=== PATIENT | male | born 1955 | race Caucasian/White ===

== ENCOUNTER 2019-03-29 06:25 | Outpatient (CLI) | payer BC, MEDICARE ==
[2019-03-29 10:17] LABS: Bacteria/HPF None Seen HPF (None Seen); Bilirubin Negative (Negative); Blood, Urine Trace (Negative); Clarity Clear (Clear); Glucose, Urine (Dipstick) Normal (Negative); Leukocyte Negative Leu/uL (Negative); Nitrite Negative (Negative); Protein, Urine (Dipstick) Negative (Neg-Trace); RBC/HPF 0-3 HPF (0-3); Squamous Epithelial None Seen HPF (0-3); Urobilinogen Normal mg/dL (Less than 2); WBC/HPF None Seen HPF (0-3)
[2019-03-29 10:31] LABS: INR-International Normal Ratio 0.9; Prothrombin Time 12.6 SEC (12.0-14.7)
== END 2019-03-29 06:26 | disposition home or self-care (01) ==
LOC: LABBT 06:25
PROVIDERS: ATTEND Orthopaedic Surgery
DX: Z01.812 Encounter for preprocedural laboratory examination (principal); M16.12 Unilateral primary osteoarthritis, left hip
CPT/HCPCS: 81001; 85610; 87081

== ENCOUNTER 2019-03-29 08:30 | Inpatient (IN) | payer BC, MEDICARE ==
[2019-03-29 08:57] VITALS: BMI 29.5
[2019-04-10] MEDS ORDERED: Tranexamic Acid 1,000 MG/10 ML VIAL ONE (05:56)
[2019-04-10] MEDS ORDERED: Sodium Chloride 0.9% 100 ML ONE (05:56)
[2019-04-10] MEDS ORDERED: Vancomycin 1.5 GRAM/300 ML BAG 1.5 GM in Premix Bag 1 BAG IVPB SCH (06:00)
[2019-04-10] MEDS ORDERED: Lidocaine 1% (PF) 30 ML VIAL ONE (06:25)
[2019-04-10] MEDS ORDERED: Fentanyl 100 MCG/2 ML VIAL ONE ×2 (06:25→07:21)
[2019-04-10] MEDS ORDERED: Midazolam HCl 2 mg/2 ml Vial ONE (06:25)
[2019-04-10] MEDS ORDERED: Zolpidem Tartrate 5 MG TAB PO PRN ×2 (06:45→06:48)
[2019-04-10] MEDS ORDERED: Naloxone HCl 0.4 mg/ml Vial IV PRN (06:45)
[2019-04-10] MEDS ORDERED: diphenhydrAMINE 25 MG CAP PO PRN ×2 (06:45→06:48)
[2019-04-10] MEDS ORDERED: Promethazine HCl 25 MG SUPP PR PRN (06:45)
[2019-04-10] MEDS ORDERED: diphenhydrAMINE 50 MG/ML VIAL IVP PRN (06:45)
[2019-04-10] MEDS ORDERED: Ondansetron PF 4 MG/2 ML Vial IVP PRN ×2 (06:45→06:48)
[2019-04-10] MEDS ORDERED: Naloxone HCl 0.4 mg/ml Vial IVP PRN (06:45)
[2019-04-10] MEDS ORDERED: diphenhydrAMINE 50 MG/ML VIAL IM PRN (06:45)
[2019-04-10] MEDS ORDERED: traMADol HCl 50 MG TAB PO PRN ×2 (06:45)
[2019-04-10] MEDS ORDERED: Hydrocerin (Eucerin) Cream 120 gm Jar TOP PRN (06:45)
[2019-04-10] MEDS ORDERED: Promethazine HCl 25 MG/ML VIAL IM PRN ×3 (06:45→08:34)
[2019-04-10] MEDS ORDERED: Acetaminophen 325 MG TAB PO PRN (06:48)
[2019-04-10] MEDS ORDERED: HYDROcodone/Acetaminophen 10/325 mg Tablet PO PRN ×2 (06:48)
[2019-04-10] MEDS ORDERED: Fentanyl 100 MCG/2 ML VIAL SLOW IVP PRN ×2 (06:48)
[2019-04-10] MEDS ORDERED: Ropivacaine 0.2% HCl/PF 20 ML ONE (07:22)
[2019-04-10] MEDS ORDERED: Promethazine HCl 25 MG/ML VIAL SLOW IVP PRN (08:34)
[2019-04-10] MEDS ORDERED: Ondansetron HCl/PF 4 MG/2 ML Vial IVP PRN (08:34)
[2019-04-10] MEDS ORDERED: Non-Formulary Item 1 EACH (Multivitamin [Multi-Vitamin Daily] 1 TABLET) PO SCH (09:00)
[2019-04-10] MEDS ORDERED: Aspirin 81 mg Enteric Coated Tablet PO SCH (09:00)
--- NOTE | 2019-04-10 09:56 | RAD ---
XR Hip Lt 2-3 View HISTORY: Postop total hip replacement FINDINGS: There are recent postoperative changes of total left hip arthroplasty in good position and alignment.
[2019-04-10] MEDS ORDERED: PROPOFOL 200 MG/20 ML VIAL ONE (10:18)
[2019-04-10] MEDS ORDERED: Lidocaine 1.5% w/Epi 1:200K 30 ML VIAL (Epid Use) ONE (10:18)
[2019-04-10] MEDS ORDERED: Lidocaine 1% PF 5 ML VIAL ONE (10:18)
[2019-04-10] MEDS ORDERED: Glycopyrrolate 0.2 MG/ML 5 ML SYRINGE ONE (10:18)
[2019-04-10] MEDS ORDERED: Rocuronium Bromide 10 MG/ML (10ML VIAL) ONE (10:18)
[2019-04-10] MEDS ORDERED: Ondansetron PF 4 MG/2 ML Vial ONE (10:18)
[2019-04-10] MEDS: Sodium Chloride 0.9% 1,000 ML IV SCH ×2 (11:35→15:08)
[2019-04-10] MEDS: Aspirin 81 mg Enteric Coated Tablet PO SCH ×2 (11:55→20:30)
[2019-04-10] MEDS: Ubidecarenone 50 MG CAP PO SCH (11:55)
[2019-04-10] MEDS: Ketorolac Tromethamine 30 MG/ML VIAL IVP SCH ×3 (12:19→23:53)
[2019-04-10] MEDS: CEFAZOLIN 2 GM in Premix Bag 1 BAG IVPB SCH ×2 (15:01→21:24)
--- NOTE | 2019-04-10 17:18 | OP ---
DATE OF PROCEDURE: 04/10/2019 PROCEDURE PERFORMED: Left total hip arthroplasty using a Crestline Accolade II, #6 stem with 54 mm cup and -2.5, 36 ceramic head, 10 degree offset, 36 mm X3 liner. DOCKMASTER: Shamir Reyna PA-C BLOOD LOSS: Less than 200. SPECIMEN: None. DRAIN: None. COMPLICATION: None. PROCEDURE IN DETAIL: After informed consent was obtained in the preoperative holding area, the patient was taken to the operative suite where general anesthesia was induced. The patient was then positioned in the lateral decubitus position. The hip was then prepped and draped in usual sterile fashion. The patient received preoperative antibiotics. Prior to incision, time-out was called and all members of the surgical team agreed upon site, surgeon, and patient. After this, a longitudinal incision was made directly over the trochanter, noted by palpation extending 2 fingerbreadths above and below the trochanter. The deeper subcutaneous layer was undermined with Bovie electrocautery. The iliotibial band was encountered and incised sharply and the plane below this was developed bluntly. A Charnley retractor was placed to hold this opened. The lateral aspect of the trochanter and the abductor muscles were encountered and then reflected anteriorly off the trochanter using Bovie electrocautery. Once this was completed, the anterior capsule was then encountered and identified and copious capsulotomy was carried out, exposing the femoral neck and head. Dislocation maneuver was then performed and an in situ provisional neck cut was then made using the oscillating saw. Attention was then turned to acetabular preparation and sequential reaming was carried out up to the appropriate diameter. A trial was then malleted into place with good firm resistance and no pullout. The permanent acetabular shell was then malleted squarely into place, as was the appropriate liner. Once completed, the wound was copiously irrigated and attention was then turned to femoral preparation. Flexion and external rotation were performed of the exposed thigh and femoral elevators were then placed at the proximal aspect of the wound. Canal finder was used to establish the length of the canal and sequential reaming was carried out, followed by broaching. Once the appropriate stability was established with the trial broaches with flexion, extension and rotational stability, we did trial with neutral and 2 mm offset incremental necks. Once the appropriate size was decided upon, with good stability noted with flexion, extension, internal and external rotation and shuck being negative, we removed the femoral trial broach and malleted into place the permanent prosthesis with good firm fit, which was also stable to rotation. Again, the hip felt very stable to flexion, extension, internal and external rotation. Leg lengths appeared near anatomic clinically and we were quite happy with prosthesis placement. Copious irrigation was then carried out through the entirety of the wound. Primary closure of the abductors was accomplished with interrupted #2 Vicryl [id number] stitches and the IT band was then closed with interrupted #2 Vicryl, oversewn with a #2 running barbed Quill stitch. Subcutaneous fascia was closed with running barbed Quill stitch and a subcuticular Monocryl barbed Quill stitch was used for skin closure and augmented with skin cement. A sterile dressing was applied. The procedure was terminated without any complication. All counts were correct. The patient was awakened in the operative suite and taken to the recovery room in stable condition. Job ID: [id number]
[2019-04-10] MEDS: Atorvastatin Calcium 20 MG TAB PO SCH (20:30)
[2019-04-10] MEDS: HYDROcodone/Acetaminophen 5/325 mg Tablet PO PRN (20:30)
[2019-04-10] MEDS: fentaNYL Citrate/PF 500 MCG, Bupivacaine 10 ML in Sodium Chloride 0.9% 80 ML EPIDURAL SCH (22:42)
[2019-04-11] MEDS: Sodium Chloride 0.9% 1,000 ML IV SCH ×3 (04:49→20:19)
[2019-04-11 05:04] LABS: Hemoglobin 12.8 g/dL (14.0-18.0); Mean Corpuscular HGB CONC 33.8 g/dL (32.0-36.0); Mean Corpuscular Hemoglobin 31.3 pg (27.0-31.0); Mean Corpuscular Volume 92.4 fL (78.0-98.0); Mean Platelet Volume 6.7 fL (7.4-10.4); Platelet Count 189 thou/uL (130-400); RBC Distribution Width 12.6 % (11.5-14.5); Red Blood Cell (RBC) Count 4.09 mill/uL (4.70-6.10); White Blood Cell (WBC) Count 10.8 thou/uL (4.8-10.8)
[2019-04-11] MEDS: Ketorolac Tromethamine 30 MG/ML VIAL IVP SCH ×3 (05:13→18:28)
[2019-04-11] MEDS: Aspirin 81 mg Enteric Coated Tablet PO SCH ×2 (08:14→20:14)
[2019-04-11] MEDS: Ferrous Gluconate 324 MG TAB PO SCH ×2 (08:14→20:14)
[2019-04-11] MEDS: Ubidecarenone 50 MG CAP PO SCH (08:14)
[2019-04-11] MEDS: Multivitamin W/ Minerals 1 TAB PO SCH (08:14)
[2019-04-11] MEDS: Senokot S 8.6-50 MG TAB PO SCH ×2 (08:14→20:16)
[2019-04-11] MEDS ORDERED: FLU VACC TS2019-20(65YR UP)/PF 180 MCG/0.5 ML SYRINGE IM ONE (09:00)
[2019-04-11] MEDS: HYDROcodone/Acetaminophen 5/325 mg Tablet PO PRN ×2 (09:29→15:24)
[2019-04-11] MEDS ORDERED: Calcium Carbonate 500 MG ChewTAB PO PRN (11:18)
[2019-04-11] MEDS ORDERED: Prevnar 13-Val Conj/PF 0.5 ML SYRINGE IM ONE (12:30)
[2019-04-11] MEDS: fentaNYL Citrate/PF 500 MCG, Bupivacaine 10 ML in Sodium Chloride 0.9% 80 ML EPIDURAL SCH (14:44)
[2019-04-11] MEDS ORDERED: Polyethylene Glycol 3350 17 GM Packet PO PRN (19:55)
[2019-04-11] MEDS: Atorvastatin Calcium 20 MG TAB PO SCH (20:16)
[2019-04-12] MEDS: Ketorolac Tromethamine 30 MG/ML VIAL IVP SCH ×2 (00:19→06:27)
[2019-04-12 05:00] LABS: Hemoglobin 12.4 g/dL (14.0-18.0); Mean Corpuscular HGB CONC 33.4 g/dL (32.0-36.0); Mean Corpuscular Hemoglobin 30.8 pg (27.0-31.0); Platelet Count 175 thou/uL (130-400); RBC Distribution Width 12.5 % (11.5-14.5); Red Blood Cell (RBC) Count 4.02 mill/uL (4.70-6.10); White Blood Cell (WBC) Count 11.4 thou/uL (4.8-10.8)
[2019-04-12] MEDS: Ferrous Gluconate 324 MG TAB PO SCH (08:14)
[2019-04-12] MEDS: Aspirin 81 mg Enteric Coated Tablet PO SCH (08:15)
[2019-04-12] MEDS: Multivitamin W/ Minerals 1 TAB PO SCH (08:15)
[2019-04-12] MEDS: Ubidecarenone 50 MG CAP PO SCH (08:15)
[2019-04-12] MEDS: Senokot S 8.6-50 MG TAB PO SCH (08:15)
[2019-04-12] MEDS: Sodium Chloride 0.9% 1,000 ML IV SCH (09:42)
[2019-04-12] MEDS: HYDROcodone/Acetaminophen 5/325 mg Tablet PO PRN (09:49)
[2019-04-12] MEDS ORDERED: HYDROcodone/Acetaminophen 10/325 mg Tablet PO PRN ×2 (10:10→10:11)
[2019-04-12 11:59] VITALS: BP 114/68; TEMP 98.1
== END 2019-04-12 13:55 | disposition home or self-care (01) | DRG 470 ==
LOC: SJJU 04-10 05:31
PROVIDERS: ADMIT Orthopaedic Surgery; ATTEND Orthopaedic Surgery
PROC: 0SRB04Z Replacement of Left Hip Joint with Ceramic on Polyethylene Synthetic Substitute, Open Approach (ICD-10-PCS; principal; 2019-04-10)
DX: M16.12 Unilateral primary osteoarthritis, left hip (principal); I10 Essential (primary) hypertension; E78.5 Hyperlipidemia, unspecified; Z79.899 Other long term (current) drug therapy
CPT/HCPCS: 36415; 85027; J0690; J1885; J2001; J2250; J2405; J2704; J2795; J3010; J3490

== ENCOUNTER 2019-10-22 08:22 | Outpatient (CLI) | payer BC, OTHER ==
[2019-10-22 16:31] LABS: #Basophils 0.1 thou/uL (0.0-0.2); #Eosinphils 0.1 thou/uL (0.0-0.7); #Lymphocytes 1.3 thou/uL (1.20-3.40); #Monocytes 0.5 thou/uL (0.11-0.59); #Neutrophils 5.2 thou/uL (1.40-6.50); %Eosinophils 1.2 % (0.0-10.0); %Lymphocytes 18.3 % (21.0-51.0); %Monocytes 6.9 % (0.0-10.0); %Neutrophils 72.7 % (42.0-75.0); Hemoglobin 15.3 g/dL (14.0-18.0); Mean Corpuscular HGB CONC 32.4 g/dL (32.0-36.0); Mean Corpuscular Hemoglobin 29.6 pg (27.0-31.0); Mean Corpuscular Volume 91.5 fL (78.0-98.0); Mean Platelet Volume 7.5 fL (7.4-10.4); Platelet Count 202 thou/uL (130-400); RBC Distribution Width 12.5 % (11.5-14.5); Red Blood Cell (RBC) Count 5.16 mill/uL (4.70-6.10); White Blood Cell (WBC) Count 7.2 thou/uL (4.8-10.8)
[2019-10-22 16:51] LABS: Anion Gap 13 mmol/L (10-20); BUN (Urea Nitrogen) 14 mg/dL (8.4-25.7); Calc. Creatinine Clearance 0 mL/min (70-130); Calcium 9.8 mg/dL (7.8-10.44); Carbon Dioxide 30 mmol/L (23-31); Chloride 102 mmol/L (98-107); Estimated GFR-MDRD 78; Glucose 133 mg/dL (80-115); Potassium 3.8 mmol/L (3.5-5.1); Sodium 141 mmol/L (136-145)
[2019-10-23 12:19] LABS: SARS-CoV-2 MS2 Positive; SARS-CoV-2 N Gene Negative; SARS-CoV-2 S Gene Negative; SARS-CoV-2 orf1ab Negative
--- NOTE | 2019-10-24 18:04 | EKG ---
Test Reason : PREOP Blood Pressure : / mmHG Vent. Rate : 071 BPM Atrial Rate : 071 BPM P-R Int : 176 ms QRS Dur : 096 ms QT Int : 376 ms P-R-T Axes : 067 057 053 degrees QTc Int : 408 ms Poor data quality, interpretation may be adversely affected Normal sinus rhythm with sinus arrhythmia Normal ECG When compared with ECG of 02-APR-2014 09:10, No significant change was found Confirmed by MARTIN HANNON (2) on 10/24/2019 6:03:54 PM Referred By: VALENTINA Confirmed By:MARTIN HANNON
== END 2019-10-22 08:23 | disposition home or self-care (01) ==
LOC: LABBT 08:22
PROVIDERS: ATTEND Surgery
DX: Z01.818 Encounter for other preprocedural examination (principal); Z11.59 Encounter for screening for other viral diseases; K40.20 Bilateral inguinal hernia, without obstruction or gangrene, not specified as recurrent
CPT/HCPCS: 80048; 85025; 87635; 93005; 93010; U0003

== ENCOUNTER 2019-10-25 06:08 | Day surgery (SDC) | payer BC ==
[2019-10-19 10:47] VITALS: BMI 29.0
[2019-10-25] MEDS ORDERED: Lidocaine 1% w/Epinephrine 1:100K 20 ML VIAL ONE (06:41)
[2019-10-25] MEDS ORDERED: Bupivacaine 0.25% HCL 30 ML VIAL ONE (06:41)
[2019-10-25] MEDS ORDERED: Fentanyl 250 MCG/5 ML VIAL ONE (06:57)
[2019-10-25] MEDS ORDERED: SUGAMMADEX SODIUM 200 MG/2 ML VIAL ONE (06:57)
--- NOTE | 2019-10-25 09:14 | OP ---
DATE OF PROCEDURE: 10/25/2019 PREOPERATIVE DIAGNOSIS: Bilateral inguinal hernia. POSTOPERATIVE DIAGNOSIS: Bilateral inguinal hernia. PROCEDURE PERFORMED: Laparoscopic da Beth bilateral inguinal hernia repair with mesh, 3DMax large. ANESTHESIA: General. ESTIMATED BLOOD LOSS: Minimal. COMPLICATIONS: None. SPECIMENS: None. DESCRIPTION OF PROCEDURE: The patient was taken to the operating room and laid supine on the operating room table. After general anesthetic was obtained, a Cardona was placed. The abdomen was shaved, prepped, and draped in a sterile fashion. A curved incision was made above the umbilicus. Cautery was used to dissect down to and score the fascia. Abdominal cavity was entered bluntly using a Petrona clamp. An 11-mm balloon trocar was placed and inflated. High-flow pneumoperitoneum was obtained. Left and right abdominal 8-mm robot trocars were placed. All ports were docked to the robot. The peritoneum was opened in the bilateral groin and preperitoneal space bluntly dissected to pubic tubercle medially and to anterior superior iliac crest laterally. Shelving edge of inguinal ligament fully exposed. On the right, the direct hernia was dissected back high up on to the peritoneum and the pubic tubercle exposed. On the left, there was no direct defect. A small indirect defect was dissected out of the other cord structures high on to the peritoneum. Bilateral 3DMax large mesh was brought into the abdomen and then unlabeled medial aspects were placed over pubic tubercles medially. The unlabeled medial aspect was sewn to the pubic tubercle medially. The mesh was sewn to the posterior fascia laterally using Vicryl suture. The mesh was laid out to cover the femoral direct and indirect areas. Three of Stratafix was used to close the peritoneum. All needles were removed from the abdomen and accounted for. All port sites were infiltrated using local anesthetic. All ports were removed under camera visualization. Pneumoperitoneum was let down. PDS was used to close the fascial defect above the umbilicus. All incisions were irrigated and closing using 4-0 Monocryl and Dermabond. The patient was sent to Recovery in stable condition. All instrument counts, needle counts, and lap counts were correct. Job ID: [id number]
[2019-10-25] MEDS ORDERED: Fentanyl 100 MCG/2 ML VIAL ONE ×3 (09:23→10:44)
[2019-10-25] MEDS ORDERED: Glycopyrrolate 0.2 MG/ML 5 ML SYRINGE ONE (11:38)
[2019-10-25] MEDS ORDERED: Lidocaine 1% PF 5 ML VIAL ONE (11:38)
[2019-10-25] MEDS ORDERED: PROPOFOL 200 MG/20 ML VIAL ONE (11:38)
[2019-10-25] MEDS ORDERED: Ondansetron PF 4 MG/2 ML Vial ONE (11:38)
[2019-10-25] MEDS ORDERED: Dexamethasone 20 MG/5 ML VIAL ONE (11:38)
[2019-10-25] MEDS ORDERED: Rocuronium Bromide 10 MG/ML (10ML VIAL) ONE (11:38)
[2019-10-25] MEDS ORDERED: HYDROcodone/Acetaminophen 5/325 mg Tablet ONE (12:51)
== END 2019-10-25 16:45 | disposition home or self-care (01) ==
LOC: SDC 06:08
PROVIDERS: ATTEND Surgery
PROC: 0YUA4JZ Supplement Bilateral Inguinal Region with Synthetic Substitute, Percutaneous Endoscopic Approach (ICD-10-PCS; principal; 2019-10-25)
DX: K40.20 Bilateral inguinal hernia, without obstruction or gangrene, not specified as recurrent (principal); I10 Essential (primary) hypertension; K21.9 Gastro-esophageal reflux disease without esophagitis; Z79.899 Other long term (current) drug therapy
CPT/HCPCS: C1781; J0690; J1100; J2001; J2405; J2704; J3010; S0020